=== PATIENT | female | born 2000 | race Two or more races ===

== ENCOUNTER 2025-09-27 21:37 | Emergency (ER) | payer OTHER ==
[~2025-09-27] VITALS: Ht 149.9 cm; Wt 48.0 kg
[2025-09-27 21:57] VITALS: BP 125/80; PULSE 92; RESP 14; TEMP 97.9; O2SAT 99
== END 2025-09-27 23:44 | disposition left against medical advice (07) ==
LOC: ER 21:37
DX: R10.A1 Flank pain, right side (principal); Z53.21 Procedure and treatment not carried out due to patient leaving prior to being seen by health care provider